=== PATIENT | female | born 1940 | race African-American/Black ===

== ENCOUNTER 2016-05-24 19:35 | Inpatient (IN) | payer MEDICARE ==
[~2016-05-24] VITALS: Ht 157.5 cm; Wt 78.0 kg
[2016-05-24 19:37] VITALS: BP 138/66; PULSE 95; RESP 16; TEMP 98; O2SAT 96
[2016-05-24] MEDS ORDERED: SIMV10TA PO (22:56)
[2016-05-24] MEDS ORDERED: WARF-23 PO (22:56)
[2016-05-24] MEDS ORDERED: SODIUM CHLOR 0.9% 1000 ML INJ 1,000 ML IV SCH (23:18)
--- NOTE | 2016-05-24 23:26 | PD ---
HPI Chief Complaint: Abdominal Pain Time Seen by Provider: 23:13 Travel History International Travel<30 days: No Contact w/Intl Traveler<30days: No Traveled to known affect area: No History of Present Illness HPI Patient is a 75-year-old female who presents to emergency room with complaints of abdominal pain. Patient reports that she began to have lower abdominal pain around 12:30 PM this afternoon. Patient reports that pain felt a cramping sensation to her lower abdomen. Reports that she felt nauseous today and had 2 episodes of vomiting. She does admit to having 3 bowel movements today. Patient denies any recent travels or trips. Denies fevers or chills. Denies dysuria, urinary urgency or frequency. Denies chest pain or shortness of breath. Reports that she has been having continuous lower abdominal pain, patient is here for evaluation as she has never had pain like this in the past. 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) Cerebrovascular Accident: Yes (TIA-2010) Immunizations Current: Yes Tetanus Vaccination: Unknown Influenza Vaccination: Yes ?: Not Family History Family History: Negative Social History Alcohol Use: No Tobacco Use: No Substance Use: No Allergies-Medications (Allergen,Severity, Reaction): Coded Allergies: Aggrenox (Verified Allergy, Intermediate, HEADACHE, 05/24/16) Penicillin (Verified Allergy, Mild, HIVES, 05/24/16) Reported Meds & Prescriptions Reported Meds & Active Scripts Active Macrobid (Nitrofurantoin Monoh/Nitrofur Macro) 100 Mg Cap 100 Mg PO BID 10 Days Reported Simvastatin 10 Mg Tab 10 Mg PO DAILY Warfarin 5 Mg Tab 5 Mg PO DAILY Review of Systems General / Constitutional: No: Fever Eyes: No: Visual changes HENT: No: Headaches Cardiovascular: No: Chest Pain or Discomfort Respiratory: No: Shortness of Breath Gastrointestinal: Positive: Abdominal Pain, No: Nausea, Vomiting, Diarrhea, Constipation Genitourinary: No: Urgency, Frequency, Dysuria Musculoskeletal: No: Pain Skin: No Rash Neurologic: No: Weakness Psychiatric: No: Depression Endocrine: No: Polydipsia Hematologic/Lymphatic: No: Easy Bruising Physical Exam Narrative GENERAL: No acute distress, nontoxic SKIN: Warm and dry. HEAD: Atraumatic. Normocephalic. EYES: Pupils equal and round. No scleral icterus. No injection or drainage. ENT: No nasal bleeding or discharge. Mucous membranes pink and moist. NECK: Trachea midline. No JVD. CARDIOVASCULAR: Regular rate and rhythm. No murmur appreciated. RESPIRATORY: No accessory muscle use. Clear to auscultation. Breath sounds equal bilaterally. GASTROINTESTINAL: Abdomen soft, patient with increased tenderness to the lower abdomen - no rebound or guarding on exam MUSCULOSKELETAL: No obvious deformities. No clubbing. No cyanosis. No edema. NEUROLOGICAL: Awake and alert. No obvious cranial nerve deficits. Motor grossly within normal limits. Normal speech. PSYCHIATRIC: Appropriate mood and affect; insight and judgment normal. Data Data Last Documented VS Vital Signs Date Time Temp Pulse Resp B/P Pulse Ox O2 Delivery O2 Flow Rate FiO2 05/24/16 22:56 16 05/24/16 19:37 98.0 95 138/66 96 Room Air Orders Complete Blood Count With Diff (05/24/16 23:18) Comprehensive Metabolic Panel (05/24/16 23:18) Lipase (05/24/16 23:18) Prothrombin Time / Inr (Pt) (05/24/16 23:18) Act Partial Throm Time (Ptt) (05/24/16 23:18) Urinalysis - C+S If Indicated (05/24/16 23:18) Iv Access Insert/Monitor (05/24/16 23:18) Morphine Inj (Morphine Inj) (05/24/16 23:30) Ondansetron Inj (Zofran Inj) (05/24/16 23:30) Sodium Chlor 0.9% 1000 Ml Inj (Ns 1000 M (05/24/16 23:18) Sodium Chloride 0.9% Flush (Ns Flush) (05/24/16 23:30) Urine Culture (05/24/16 23:35) Ct Abd/Pel W Iv Contrast(Rout) (05/25/16 ) Sodium Chlor 0.9% 1000 Ml Inj (Ns 1000 M (05/25/16 00:30) Nitrofurantoin Monohyd Macrocr (Macrobid (05/25/16 00:30) Iohexol 350 Inj (Omnipaque 350 Inj) (05/25/16 00:53) Admit To Inpatient (05/25/16 ) Vital Signs (Adult) Q4H (05/25/16 01:54) Activity Oob With Assistance (05/25/16 01:54) 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 / 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 .CONTINUOUS (05/25/16 01:54) Diet Npo (05/25/16 Breakfast) Sodium Chlor 0.9% 1000 Ml Inj (Ns 1000 M (05/25/16 01:54) Sodium Chloride 0.9% Flush (Ns Flush) (05/25/16 02:00) Sodium Chloride 0.9% Flush (Ns Flush) (05/25/16 09:00) Ondansetron Inj (Zofran Inj) (05/25/16 02:00) Metoclopramide Inj (Reglan Inj) (05/25/16 02:00) Basic Metabolic Panel (Bmp) (05/26/16 06:00) Complete Blood Count With Diff (05/26/16 06:00) Scd Bilateral/Knee High PHILL.BID (05/25/16 01:54) Naloxone Inj (Narcan Inj) (05/25/16 02:00) Inpatient Certification (05/25/16 ) Labs Laboratory Tests Test 05/24/16 23:35 White Blood Count 11.8 TH/MM3 Red Blood Count 5.03 MIL/MM3 Hemoglobin 15.7 GM/DL Hematocrit 45.1 % Mean Corpuscular Volume 89.6 FL Mean Corpuscular Hemoglobin 31.2 PG Mean Corpuscular Hemoglobin 34.8 % Concent Red Cell Distribution Width 13.7 % Platelet Count 213 TH/MM3 Mean Platelet Volume 8.8 FL Neutrophils (%) (Auto) 84.1 % Lymphocytes (%) (Auto) 12.3 % Monocytes (%) (Auto) 2.9 % Eosinophils (%) (Auto) 0.0 % Basophils (%) (Auto) 0.7 % Neutrophils # (Auto) 9.9 TH/MM3 Lymphocytes # (Auto) 1.4 TH/MM3 Monocytes # (Auto) 0.3 TH/MM3 Eosinophils # (Auto) 0.0 TH/MM3 Basophils # (Auto) 0.1 TH/MM3 CBC Comment DIFF FINAL Differential Comment Prothrombin Time 22.8 SEC Prothromb Time International 2.0 RATIO Ratio Activated Partial 32.1 SEC Thromboplast Time Urine Color YELLOW Urine Turbidity HAZY Urine pH 6.0 Urine Specific [place] 1.023 Urine Protein 30 mg/dL Urine Glucose (UA) NEG mg/dL Urine Ketones TRACE mg/dL Urine Occult Blood TRACE Urine Nitrite POS Urine Bilirubin NEG Urine Urobilinogen LESS THAN 2.0 MG/DL Urine Leukocyte Esterase LARGE Urine RBC 2 /hpf Urine WBC 54 /hpf Urine Squamous Epithelial 4 /hpf Cells Urine Transitional Epithelial 1 /hpf Cells Urine Bacteria MANY /hpf Urine Hyaline Casts 5 /lpf Urine Mucus FEW /lpf Microscopic Urinalysis Comment CULTURE INDICATED Sodium Level 139 MEQ/L Potassium Level 4.2 MEQ/L Chloride Level 101 MEQ/L Carbon Dioxide Level 29.8 MEQ/L Anion Gap 8 MEQ/L Blood Urea Nitrogen 15 MG/DL Creatinine 1.30 MG/DL Estimat Glomerular Filtration 48 ML/MIN Rate Random Glucose 140 MG/DL Calcium Level 9.7 MG/DL Total Bilirubin 0.5 MG/DL Aspartate Amino Transf 34 U/L (AST/SGOT) Alanine Aminotransferase 37 U/L (ALT/SGPT) Alkaline Phosphatase 48 U/L Total Protein 8.8 GM/DL Albumin 4.2 GM/DL Lipase 166 U/L MDM Medical Decision Making Medical Screen Exam Complete: Yes Emergency Medical Condition: Yes Interpretation(s) Vital Signs Date Time Temp Pulse Resp B/P Pulse Ox O2 Delivery O2 Flow Rate FiO2 05/24/16 22:56 16 05/24/16 19:37 98.0 95 16 138/66 96 Room Air CBC & BMP Diagram 05/24/16 23:35 Last Impressions Abdomen/Pelvis CT 05/25/16 0000 Signed Impressions: Service Date/Time: Wednesday, May 25, 2016 00:45 - CONCLUSION: 1. Early and/or mild/partial small bowel obstruction at the level of the mid to distal ileum in the right lower quadrant. Etiology of obstruction uncertain. No mass demonstrated. 2. Mild fatty infiltration of the liver. 3. Small umbilical hernia containing fat only and not acutely contributory. 4. Sigmoid colon diverticulosis without diverticulitis. 5. 18 mm partly calcified uterine fibroid. Nile Burch MD Differential Diagnosis Colitis, UTI, gastroenteritis, SBO Narrative Course Patient is a 75-year-old female who presents to emergency room with complaints of lower abdominal pain since 12:30 PM this afternoon. Patient denies, fever or chills. Reports that she has had 2 episodes of vomiting today and 3 bm's. Patient reports persistent pain to lower abdomen. Vital signs are stable Patient with lower abdominal pain with no rebound or guarding on exam. Will obtain labs and CT of abdomen and pelvis for further evaluation symptoms. Patient reevaluated, reviewed all labs and all studies in detail. Patient with early small bowel obstruction on CAT scan. I reviewed this with patient in detail. Will admit her for early small bowel obstruction. Physician Communication Physician Communication case reviewed with dr caro who accepts pt to service Diagnosis Primary Impression: UTI (urinary tract infection) Qualified Code: N30.01 - Acute cystitis with hematuria Additional Impressions: Renal insufficiency Dehydration Small bowel obstruction Admitting Information Admitting Physician Requests: Admit Patient Instructions: General Instructions Med/Other Pt SpecificInfo: Prescription(s) given Scripts Nitrofurantoin Monohydrate Macrocrystals (Macrobid)100 Mg [id number] Mg PO BID 10 Days Ref 0 Prov:Mary Grace Grace DO 05/25/16 Mary Grace Grace DO May 24, 2016 23:26
[2016-05-24] MEDS ORDERED: ONDANSETRON HCL 4 MG/2 ML VIAL IVP ONE (23:30)
[2016-05-24] MEDS ORDERED: MORPHINE SULFATE 4 MG/ML INJ IV PUSH ONE (23:30)
[2016-05-24] MEDS ORDERED: SODIUM CHLORIDE 0.9% FLUSH 5 ML FLUSH IVF PRN (23:30)
[2016-05-24 23:44] LABS: AUTOMATED NEUTROPHIL # 9.9 TH/MM3 (1.8-7.7); BASOPHIL # 0.1 TH/MM3 (0-0.2); BASOPHIL % 0.7 % (0.0-2.0); HEMATOCRIT 45.1 % (35.0-46.0); HEMO FLAGS DIFF FINAL; LYMPH % 12.3 % (9.0-44.0); LYMPHOCYTE # 1.4 TH/MM3 (1.0-4.8); MEAN CELL VOLUME 89.6 FL (80.0-100.0); MEAN CORPUSCULAR HEMOGLOBIN 31.2 PG (27.0-34.0); MEAN CORPUSCULAR HGB CONC 34.8 % (32.0-36.0); MONO % 2.9 % (0.0-8.0); NEUT % 84.1 % (16.0-70.0); PLATELET COUNT 213 TH/MM3 (150-450); RED BLOOD COUNT 5.03 MIL/MM3 (4.00-5.30); RED CELL DISTRIBUTION WIDTH 13.7 % (11.6-17.2); WHITE BLOOD COUNT 11.8 TH/MM3 (4.0-11.0)
[2016-05-24 23:47] LABS: BACTERIA, URINE MANY /hpf; BLOOD, URINE TRACE (NEG); COMMENT (UR) CULTURE INDICATED; CULTURE IF INDICATED CULTURE INDICATED; GLUCOSE,URINE NEG (NEG); HYALINE CAST, URINE 5 /lpf (RARE); KETONE, URINE TRACE mg/dL (NEG); MUCUS URINE FEW /lpf (OCC); NITRITE,URINE POS (NEG); SQUAMOUS EPITHELIAL CELL URINE 4 /hpf (0-5); TRANSITIONAL EPI CELLS, URINE 1 /hpf; URINE COLOR YELLOW (YELLW/STRAW)
[2016-05-24 23:54] LABS: APTT (PATIENT) 32.1 SEC (24.3-30.1); PROTHROMBIN TIME - PATIENT 22.8 SEC (9.8-11.6)
[2016-05-25] VITALS (7 sets, daily range): BP systolic 116–128; BP diastolic 51–69; PULSE 64–78; RESP 16–20; TEMP 96.4–98.7; O2SAT 93–96
[2016-05-25 00:15] LABS: ANION GAP 8 MEQ/L (5-15); AST (GOT) 34 U/L (15-37); BICARBONATE 29.8 MEQ/L (21.0-32.0); BLOOD UREA NITROGEN 15 MG/DL (7-18); CHLORIDE 101 MEQ/L (98-107); GLOMERULAR FILTRATION RATE 48 ML/MIN (>89); POTASSIUM 4.2 MEQ/L (3.5-5.1); SODIUM (NA) 139 MEQ/L (136-145)
[2016-05-25 00:18] LABS: ALKALINE PHOSPHATASE 48 U/L (45-117); ALT (GPT) 37 U/L (10-53); TOTAL BILIRUBIN ADULT 0.5 MG/DL (0.2-1.0)
[2016-05-25] MEDS ORDERED: MACR100C2 PO (00:20)
[2016-05-25] MEDS ORDERED: SODIUM CHLOR 0.9% 1000 ML INJ 1,000 ML IV ONE (00:30)
[2016-05-25] MEDS ORDERED: NITROFURANTOIN MONOHYD MACROCR 100 MG CAP PO ONE (00:30)
[2016-05-25] MEDS ORDERED: IOHEXOL 350 MG/ML 10 ML VIAL (for RAD DIAG) IV ONE (00:53)
--- NOTE | 2016-05-25 01:18 | RADRPT ---
EXAM DATE/TIME: 05/25/2016 00:45 [facility] COMPARISON: No previous studies available for comparison. INDICATIONS : Abdomen pain with vomiting. IV CONTRAST: 70 cc Omnipaque 350 (iohexol) IV ORAL CONTRAST: No oral contrast ingested. RADIATION DOSE: 8.37 CTDIvol (mGy) MEDICAL HISTORY : Cerebrovascular disease. SURGICAL HISTORY : None. ENCOUNTER: Initial ACUITY: 1 day PAIN SCALE: 8/10 LOCATION: Bilateral abdomen TECHNIQUE: Volumetric scanning of the abdomen and pelvis was performed. Using automated exposure control and ad justment of the mA and/or kV according to patient size, radiation dose was kept as low as reasonably achievable to obtain optimal diagnostic quality images. FINDINGS: LOWER LUNGS: The visualized lower lungs are clear. LIVER: Homogeneous mild fatty density without lesion. There is no dilation of the biliary tree. No calcifi ed gallstones. SPLEEN: Normal size without lesion. PANCREAS: Within normal limits. KIDNEYS: Normal in size and shape. There is no mass, stone or hydronephrosis. ADRENAL GLANDS: Within normal limits. VASCULAR: There is no aortic aneurysm. BOWEL/MESENTERY: Fluid-filled loops of small bowel are seen to the level of the mid ileum, only upper limits of normal caliber but clearly with decompressed distal ileum. The caliber change appears to be in the right lo wer quadrant. I don't see a mass. The appendix is well-visualized, normal. There is diverticulosis of the sigmoid colon without acute inflammatory changes. There is small free fluid in the pelvic cavity . ABDOMINAL WALL: Small fat containing umbilical hernia. RETROPERITONEUM: There is no lymphadenopathy. BLADDER: No wall thickening or mass. REPRODUCTIVE: Partly calcified 18 mm uterine fibroid seen of the left side of the body. INGUINAL: There is no lymphadenopathy or hernia. MUSCULOSKELETAL: Within normal limits for patient age. CONCLUSION: 1. Early and/or mild/partial small bowel obstruction at the level of the mid to distal ileum in the r ight lower quadrant. Etiology of obstruction uncertain. No mass demonstrated. 2. Mild fatty infiltration of the liver. 3. Small umbilical hernia containing fat only and not acutely contributory. 4. Sigmoid colon diverticulosis without diverticulitis. 5. 18 mm partly calcified uterine fibroid. Nile Burch MD on May 25, 2016 at 1:11 Board Certified Radiologist. This report was verified electronically.
[2016-05-25] MEDS ORDERED: METOCLOPRAMIDE HCL 10 MG/2 ML VIAL IV PUSH PRN (02:00)
[2016-05-25] MEDS ORDERED: SODIUM CHLORIDE 0.9% FLUSH 5 ML FLUSH FLUSH PRN (02:00)
[2016-05-25] MEDS ORDERED: NALOXONE HCL 0.4 MG/ML AMP IV PRN (02:00)
[2016-05-25] MEDS ORDERED: ONDANSETRON HCL 4 MG/2 ML VIAL IVP PRN (02:00)
[2016-05-25] MEDS: SODIUM CHLOR 0.9% 1000 ML INJ 1,000 ML IV SCH ×3 (02:13→21:54)
[2016-05-25] MEDS: SODIUM CHLORIDE 0.9% FLUSH 5 ML FLUSH FLUSH SCH ×2 (09:00→20:12)
[2016-05-25] MEDS: CIPROFLOXACIN 400 MG PREMIX 200 ML IV SCH ×2 (11:11→18:03)
[2016-05-25] MEDS ORDERED: NON-FORMULARY DRUG (Simvastatin 10 MG) PO SCH (18:30)
--- NOTE | 2016-05-25 18:42 | HHI.HP ---
HPI Service [facility] Hospitalists Primary Care Physician Non-Staff Admission Diagnosis Small bowel obstruction, uti Diagnoses: Chief Complaint: Abdominal pain Travel History International Travel<30 Days: No Contact w/Intl Traveler <30 Da: No Traveled to Known Affected Are: No History of Present Illness This is a 75-year-old female with past medical history as detailed below who presents to [facility] complaining of abdominal pain. The patient reports that she started having lower abdominal pain around 12:30 PM this afternoon. The pain was crampy and located in her lower abdomen, nonradiating associated with nausea and 2 episodes of vomiting. She states that had 3 episodes of bowel movement on that same day. The patient denies any fevers, chills, urinary frequency or urgency, chest pain or shortness of breath. The patient however reports that she has been having continued lower abdominal pain prior to these episodes. At the moment of this interview the patient's abdominal pain has completely subsided as well as the nausea. Review of Systems Other As per history of present illness, other systems reviewed and negative Past Family Social History Past Medical History 1. TIA. 2. 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 4. Hyperlipidemia 5. Denies hypertension. Past Surgical History 1. History of ectopic was she had a fallopian tube removed. 2. Bilateral cataract surgery. Reported Medications Macrobid (Nitrofurantoin Monoh/Nitrofur Macro) 100 Mg Cap 100 Mg PO BID 10 Days Simvastatin 10 Mg Tab 10 Mg PO DAILY Warfarin 5 Mg Tab 5 Mg PO DAILY Allergies: Coded Allergies: Aggrenox (Verified Allergy, Intermediate, HEADACHE, 05/24/16) Penicillin (Verified Allergy, Mild, HIVES, 05/24/16) Active Ordered Medications Current Medications Medications (Trade) Dose Ordered Sig/Rolando Route Start Time Stop Time Status Last Admin (NS 1000 ml Inj) 1,000 ml @ 100 mls/hr Q10H IV 05/25/16 01:54 05/25/16 12:45 (NS Flush) 2 ml UNSCH PRN FLUSH 05/25/16 02:00 (NS Flush) 2 ml BID FLUSH 05/25/16 09:00 (Zofran Inj) 4 mg Q6H PRN IVP 05/25/16 02:00 (Reglan Inj) 5 mg Q6H PRN IV PUSH 05/25/16 02:00 Naloxone HCl 0.4 mg 0.4 mg UNSCH PRN IV 05/25/16 02:00 (Cipro 400 Mg Premix) 200 ml @ 200 mls/hr Q8H IV 05/25/16 10:15 05/25/16 18:03 Family History Patient maternal grandmother had heart disease. The patient's grandmother at age 42 and her in her 60s. Sister had breast cancer. Father had bladder cancer. Mother had leukemia. Social History Patient is a former smoker but states that she quit approximately 2 years ago. Denies alcohol intake. The patient is and lives with her . Physical Exam Vital Signs Vital Signs Date Time Temp Pulse Resp B/P Pulse Ox O2 Delivery O2 Flow Rate FiO2 05/25/16 16:00 96.4 64 18 121/62 95 05/25/16 15:00 72 05/25/16 12:00 98.1 67 18 128/59 94 05/25/16 08:00 97.1 67 20 121/58 95 05/25/16 06:06 97.6 67 20 116/51 95 05/25/16 00:00 78 16 128/60 96 Room Air 05/24/16 22:56 16 05/24/16 19:37 98.0 95 16 138/66 96 Room Air Physical Exam GENERAL: This is a well-nourished, well-developed patient, in no apparent distress. SKIN: No rashes, ecchymoses or lesions. Cool and dry. HEAD: Atraumatic. Normocephalic. No temporal or scalp tenderness. EYES: Pupils equal round and reactive. Extraocular motions intact. No scleral icterus. No injection or drainage. ENT: Nose without bleeding, purulent drainage or septal hematoma. Throat without erythema, tonsillar hypertrophy or exudate. Uvula midline. Airway patent. NECK: Trachea midline. No JVD or lymphadenopathy. Supple, nontender, no meningeal signs. CARDIOVASCULAR: Regular rate and rhythm without murmurs, gallops, or rubs. RESPIRATORY: Clear to auscultation. Breath sounds equal bilaterally. No wheezes , rales, or rhonchi. GASTROINTESTINAL: Abdomen soft, non-tender, nondistended. No hepato-splenomegaly , or palpable masses. No guarding. MUSCULOSKELETAL: Extremities without clubbing, cyanosis, or edema. No joint tenderness, effusion, or edema noted. No calf tenderness. Negative Homans sign bilaterally. NEUROLOGICAL: Awake and alert. Cranial nerves II through XII intact. Motor and sensory grossly within normal limits. Five out of 5 muscle strength in all muscle groups. Normal speech. Laboratory Laboratory Tests Test 05/24/16 05/25/16 23:35 09:30 White Blood Count 11.8 Red Blood Count 5.03 Hemoglobin 15.7 Hematocrit 45.1 Mean Corpuscular Volume 89.6 Mean Corpuscular Hemoglobin 31.2 Mean Corpuscular Hemoglobin 34.8 Concent Red Cell Distribution Width 13.7 Platelet Count 213 Mean Platelet Volume 8.8 Neutrophils (%) (Auto) 84.1 Lymphocytes (%) (Auto) 12.3 Monocytes (%) (Auto) 2.9 Eosinophils (%) (Auto) 0.0 Basophils (%) (Auto) 0.7 Neutrophils # (Auto) 9.9 Lymphocytes # (Auto) 1.4 Monocytes # (Auto) 0.3 Eosinophils # (Auto) 0.0 Basophils # (Auto) 0.1 CBC Comment DIFF FINAL Differential Comment Prothrombin Time 22.8 Prothromb Time International 2.0 Ratio Activated Partial 32.1 Thromboplast Time Urine Color YELLOW Urine Turbidity HAZY Urine pH 6.0 Urine Specific [place] 1.023 Urine Protein 30 Urine Glucose (UA) NEG Urine Ketones TRACE Urine Occult Blood TRACE Urine Nitrite POS Urine Bilirubin NEG Urine Urobilinogen LESS THAN 2.0 Urine Leukocyte Esterase LARGE Urine RBC 2 Urine WBC 54 Urine Squamous Epithelial 4 Cells Urine Transitional Epithelial 1 Cells Urine Bacteria MANY Urine Hyaline Casts 5 Urine Mucus FEW Microscopic Urinalysis Comment CULTURE INDICATED Sodium Level 139 Potassium Level 4.2 Chloride Level 101 Carbon Dioxide Level 29.8 Anion Gap 8 Blood Urea Nitrogen 15 Creatinine 1.30 Estimat Glomerular Filtration 48 Rate Random Glucose 140 Calcium Level 9.7 Total Bilirubin 0.5 Aspartate Amino Transf 34 (AST/SGOT) Alanine Aminotransferase 37 (ALT/SGPT) Alkaline Phosphatase 48 Total Protein 8.8 Albumin 4.2 Lipase 166 Nasal Screen MRSA (PCR) NEGATIVE Date/Time Procedure Status Source Growth 05/24/16 23:35 Urine Culture - Preliminary Resulted Urine Clean Catch IMMATURE GROWTH - REINCUBATE Result Diagram: 05/24/16 2335 05/24/16 2335 Imaging Last Impressions Abdomen/Pelvis CT 05/25/16 0000 Signed Impressions: Service Date/Time: Wednesday, May 25, 2016 00:45 - CONCLUSION: 1. Early and/or mild/partial small bowel obstruction at the level of the mid to distal ileum in the right lower quadrant. Etiology of obstruction uncertain. No mass demonstrated. 2. Mild fatty infiltration of the liver. 3. Small umbilical hernia containing fat only and not acutely contributory. 4. Sigmoid colon diverticulosis without diverticulitis. 5. 18 mm partly calcified uterine fibroid. Nile Burch MD Reviewed by me Assessment and Plan Problem List: (1) Small bowel obstruction ICD Code: K56.69 Status: Acute Plan: 75-year-old female who presented to [facility] complaining of abdominal pain, nausea and vomiting. Found to have an early small bowel obstruction on CT scan. Patient initially was admitted to the medical floor. Place nothing by mouth. Symptoms much improved today. I will set the patient after liquid diet. Obtain a KUB Continue fluids and hydration. (2) UTI (urinary tract infection) ICD Code: N39.0 Status: Acute Plan: Patient was on Macrobid at home. UA is positive here. Patient denies fevers or chills. I will start the patient had a ciprofloxacin and follow urine cultures (3) DEBORAH (acute kidney injury) ICD Code: N17.9 Status: Acute Plan: Creatinine elevated to 1.30. Unfortunately we don't have any other previous creatinines to compare with. Likely prerenal azotemia due to dehydration. CT abdomen rule out hydronephrosis. (4) Dehydration ICD Code: E86.0 Status: Acute Plan: Likely due to decreased oral intake, although patient's states that she has been hydrating herself. Continue IV fluids. (5) History of TIAs ICD Code: Z86.73 Status: Chronic Plan: Patient currently on chronic anticoagulation with Coumadin. INR is 2.0. Continue warfarin with a goal INR of 2-3. (6) Hyperlipidemia ICD Code: E78.5 Status: Acute Plan: Continue statin. Assessment and Plan GI prophylaxis: PPI. Activity prophylaxis: On chronic anticoagulation with Coumadin. Physician Certification 2 Midnight Certification Type: Admission for Inpatient Services Order for Inpatient Services The services are ordered in accordance with Medicare regulations or non- Medicare payer requirements, as applicable. In the case of services not specified as inpatient-only, they are appropriately provided as inpatient services in accordance with the 2-midnight benchmark. Estimated LOS (days): 2 days is the estimated time the patient will need to remain in the hospital, assuming treatment plan goals are met and no additional complications. Post-Hospital Plan: Home Problem Qualifiers (1) UTI (urinary tract infection): Qualified Code: N30.01 - Acute cystitis with hematuria Rayshawn Baez MD May 25, 2016 18:42
--- NOTE | 2016-05-25 19:04 | RADRPT ---
EXAM DATE/TIME: 05/25/2016 18:38 [facility] COMPARISON: No previous studies available for comparison. INDICATIONS : Abdominal distention. MEDICAL HISTORY : Cerebrovascular disease. SURGICAL HISTORY : None. ENCOUNTER: Initial ACUITY: 2 days PAIN SCORE: 0/10 LOCATION: Bilateral abdomen FINDINGS: Supine view of the abdomen was performed. The abdominal bowel gas pattern is normal. No abnormal ma sses, calcifications, or organomegaly is seen. The osseous structures are unremarkable. CONCLUSION: No acute disease. Nile Locke MD on May 25, 2016 at 19:02 Board Certified Radiologist. This report was verified electronically.
[2016-05-25] MEDS: PRAVASTATIN SOD 20 MG TAB PO SCH (20:11)
[2016-05-25] MEDS: WARFARIN SOD 5 MG TAB PO SCH (20:11)
[2016-05-26] VITALS (7 sets, daily range): BP systolic 110–149; BP diastolic 50–77; PULSE 63–78; RESP 17–18; TEMP 97–99.4; O2SAT 93–98
[2016-05-26] MEDS: CIPROFLOXACIN 400 MG PREMIX 200 ML IV SCH ×3 (02:51→16:32)
[2016-05-26] MEDS ORDERED: ACETAMINOPHEN 325 MG TAB PO PRN (03:30)
[2016-05-26] MEDS: SODIUM CHLOR 0.9% 1000 ML INJ 1,000 ML IV SCH ×2 (07:54→16:27)
[2016-05-26] MEDS: PRAVASTATIN SOD 20 MG TAB PO SCH (08:30)
[2016-05-26] MEDS: SODIUM CHLORIDE 0.9% FLUSH 5 ML FLUSH FLUSH SCH ×2 (08:30→21:00)
--- NOTE | 2016-05-26 12:47 | HHI.PR ---
Subjective Remarks Patient stated she is passing gas but no bowel movement, no nausea or vomiting No abdominal pain or fever or chills Objective Vitals Vital Signs Date Time Temp Pulse Resp B/P Pulse Ox O2 Delivery O2 Flow Rate FiO2 05/26/16 08:45 97.8 72 18 115/56 93 05/26/16 04:44 98.7 70 17 122/61 93 05/26/16 00:08 97.0 76 17 110/50 93 05/25/16 20:07 98.7 73 17 128/69 93 05/25/16 16:00 96.4 64 18 121/62 95 05/25/16 15:00 72 I/O 05/25/16 05/25/16 05/25/16 05/26/16 05/26/16 05/26/16 07:00 15:00 23:00 07:00 15:00 23:00 Intake Total 830 ml 942 ml Balance 830 ml 942 ml Intake Oral 120 ml 120 ml IV Total 710 ml 822 ml # Voids 2 2 3 2 Result Diagram: 05/24/16233405/24/165 Objective Remarks - GENERAL: This is a well-nourished, well-developed patient, in no apparent distress. SKIN: No rashes, warm and dry HEAD: Atraumatic. Normocephalic. EYES: Pupils equal round and reactive. Extraocular motions intact. No scleral icterus. ENT: Nose without bleeding, or drainage, Airway patent. NECK: Trachea midline. Supple CARDIOVASCULAR: Regular rate and rhythm without murmurs, gallops, or rubs. RESPIRATORY: Fair air entry bilaterally. No wheezes, rales, or rhonchi. GASTROINTESTINAL: Abdomen soft, non-tender, nondistended. Diminished bowel sounds MUSCULOSKELETAL: Extremities without clubbing, cyanosis, or edema. Pedal pulses appreciated NEUROLOGICAL: Awake and alert. Moves all extremity. Normal speech.no focal neurological deficit A/P Problem List: (1) Small bowel obstruction ICD Code: K56.69 Status: Acute (2) UTI (urinary tract infection) ICD Code: N39.0 Status: Acute (3) DEBORAH (acute kidney injury) ICD Code: N17.9 Status: Acute (4) Dehydration ICD Code: E86.0 Status: Acute (5) History of TIAs ICD Code: Z86.73 Status: Chronic (6) Hyperlipidemia ICD Code: E78.5 Status: Acute Assessment and Plan 75-year-old female who presented to [facility] complaining of abdominal pain, nausea and vomiting. Found to have an early small bowel obstruction on CT scan. Early Small bowel obstruction shown on CT abdomen Diverticulosis without diverticulitis UTI DEBORAH versus CKD, baseline creatinine not known Dehydration H/O TIA H/O hyperlipidemia VT prophylaxis Plan: Nothing by mouth, advance diet as tolerated KUB and CT abdomen reviewed, partial small bowel obstruction and diverticulosis Started ciprofloxacin for UTI, monitor urine culture Monitor BMP, on iv hydration, BUN over creatinine Patient on Coumadin for TIA, continue monitoring INR Continue statin for hyperlipidemia On Coumadin for DVT prophylaxis Problem Qualifiers (1) UTI (urinary tract infection): Qualified Code: N30.01 - Acute cystitis with hematuria Verna Willson MD May 26, 2016 12:47
[2016-05-26 14:28] LABS: BICARBONATE 25.2 MEQ/L (21.0-32.0); POTASSIUM 3.9 MEQ/L (3.5-5.1)
[2016-05-26] MEDS: WARFARIN SOD 5 MG TAB PO SCH (16:27)
[2016-05-27] VITALS (8 sets, daily range): BP systolic 110–150; BP diastolic 48–70; PULSE 63–86; RESP 18; TEMP 96.6–98.6; O2SAT 93–98
[2016-05-27] MEDS: CIPROFLOXACIN 400 MG PREMIX 200 ML IV SCH ×3 (02:15→17:55)
[2016-05-27] MEDS: SODIUM CHLOR 0.9% 1000 ML INJ 1,000 ML IV SCH ×3 (03:54→23:54)
[2016-05-27 07:33] LABS: INTERNATIONAL NORMALIZED RATIO 2.6 RATIO; PROTHROMBIN TIME - PATIENT 30.2 SEC (9.8-11.6)
[2016-05-27 07:48] LABS: BICARBONATE 27.1 MEQ/L (21.0-32.0); POTASSIUM 3.8 MEQ/L (3.5-5.1)
[2016-05-27] MEDS: SODIUM CHLORIDE 0.9% FLUSH 5 ML FLUSH FLUSH SCH ×2 (09:00→21:00)
[2016-05-27] MEDS ORDERED: RESP: ALBUTEROL 2.5 MG/IPRATROPIUM 0.5 MG NEB (SCH) ONE (10:59)
--- NOTE | 2016-05-27 11:38 | HHI.PR ---
Subjective Remarks Patient still did not have a bowel movement, she stated she is passing gas no fever or chills no abdominal pain she is on full liquid diet we will advance her diet and monitor for a bowel movement Objective Vitals Vital Signs Date Time Temp Pulse Resp B/P Pulse Ox O2 Delivery O2 Flow Rate FiO2 05/27/16 08:07 97.2 68 18 134/61 93 05/27/16 08:00 63 05/27/16 04:00 96.6 63 18 110/48 95 05/27/16 00:00 98.4 86 18 120/70 96 05/26/16 20:00 98.2 70 18 141/60 98 05/26/16 18:00 63 05/26/16 17:01 99.4 78 18 149/77 98 05/26/16 13:03 99.2 70 18 132/66 96 I/O 05/26/16 05/26/16 05/26/16 05/27/16 05/27/16 05/27/16 07:00 15:00 23:00 07:00 15:00 23:00 Intake Total 942 ml 720 ml 360 ml Balance 942 ml 720 ml 360 ml Intake Oral 120 ml 720 ml 360 ml IV Total 822 ml # Voids 2 4 Result Diagram: 05/24/16 2335 05/27/16 0700 Objective Remarks - GENERAL: This is a well-nourished, well-developed patient, in no apparent distress. SKIN: No rashes, warm and dry HEAD: Atraumatic. Normocephalic. EYES: Pupils equal round and reactive. Extraocular motions intact. No scleral icterus. ENT: Nose without bleeding, or drainage, Airway patent. NECK: Trachea midline. Supple CARDIOVASCULAR: Regular rate and rhythm without murmurs, gallops, or rubs. RESPIRATORY: Fair air entry bilaterally. No wheezes, rales, or rhonchi. GASTROINTESTINAL: Abdomen soft, non-tender, nondistended. Still Diminished b owel sounds MUSCULOSKELETAL: Extremities without clubbing, cyanosis, or edema. Pedal pulses appreciated NEUROLOGICAL: Awake and alert. Moves all extremity. Normal speech.no focal neurological deficit A/P Problem List: (1) Small bowel obstruction ICD Code: K56.69 Status: Acute (2) UTI (urinary tract infection) ICD Code: N39.0 Status: Acute (3) DEBORAH (acute kidney injury) ICD Code: N17.9 Status: Acute (4) Dehydration ICD Code: E86.0 Status: Acute (5) History of TIAs ICD Code: Z86.73 Status: Chronic (6) Hyperlipidemia ICD Code: E78.5 Status: Acute Assessment and Plan 75-year-old female who presented to [facility] complaining of abdominal pain, nausea and vomiting. Found to have an early small bowel obstruction on CT scan. Early Small bowel obstruction shown on CT abdomen Diverticulosis without diverticulitis UTI DEBORAH versus CKD, baseline creatinine not known Dehydration H/O TIA H/O hyperlipidemia VT prophylaxis Plan: Patient on full liquid diet, advance diet as tolerated, monitor for bowel movement KUB and CT abdomen reviewed, partial small bowel obstruction and diverticulosis Started ciprofloxacin for UTI, monitor urine culture Monitor BMP, on iv hydration, BUN over creatinine Patient on Coumadin for TIA, continue monitoring INR Continue statin for hyperlipidemia On Coumadin for DVT prophylaxis Discharge Planning DC once having a bowel movement Problem Qualifiers (1) UTI (urinary tract infection): Qualified Code: N30.01 - Acute cystitis with hematuria Verna Willson MD May 27, 2016 11:38
[2016-05-27] MEDS: WARFARIN SOD 5 MG TAB PO SCH (16:09)
[2016-05-27] MEDS ORDERED: PRAVASTATIN SOD 20 MG TAB PO SCH (21:00)
[2016-05-28 00:30] VITALS: BP 145/60; PULSE 68; RESP 19; TEMP 97.7; O2SAT 97
[2016-05-28] MEDS: CIPROFLOXACIN 400 MG PREMIX 200 ML IV SCH (02:15)
[2016-05-28 05:45] VITALS: BP 139/65; PULSE 64; RESP 18; TEMP 97.5; O2SAT 96
[2016-05-28 08:00] VITALS: BP 143/66; PULSE 66; RESP 20; TEMP 97.9; O2SAT 98
[2016-05-28] MEDS: SODIUM CHLORIDE 0.9% FLUSH 5 ML FLUSH FLUSH SCH (09:00)
[2016-05-28] MEDS: SODIUM CHLOR 0.9% 1000 ML INJ 1,000 ML IV SCH (09:54)
--- NOTE | 2016-05-28 10:35 | HHI.DS ---
Discharge Summary Admission Date May 25, 2016 at 01:58 Discharge Date: May 28, 2016 Admitting Diagnosis Small bowel obstruction, uti (1) Small bowel obstruction ICD Code: K56.69 (2) UTI (urinary tract infection) ICD Code: N39.0 (3) DEBORAH (acute kidney injury) ICD Code: N17.9 (4) Dehydration ICD Code: E86.0 (5) History of TIAs ICD Code: Z86.73 (6) Hyperlipidemia ICD Code: E78.5 Procedures None Brief History - From Admission This is a 75-year-old female with past medical history as detailed below who presents to [facility] complaining of abdominal pain. The patient reports that she started having lower abdominal pain around 12:30 PM this afternoon. The pain was crampy and located in her lower abdomen, nonradiating associated with nausea and 2 episodes of vomiting. She states that had 3 episodes of bowel movement on that same day. The patient denies any fevers, chills, urinary frequency or urgency, chest pain or shortness of breath. The patient however reports that she has been having continued lower abdominal pain prior to these episodes. At the moment of this interview the patient's abdominal pain has completely subsided as well as the nausea. CBC/BMP: 05/24/16 2335 05/27/16 0700 Significant Findings Laboratory Tests Test 05/26/16 05/27/16 13:21 07:00 Chloride Level 108 MEQ/L 112 MEQ/L (98-107) (98-107) Creatinine 1.03 MG/DL (0.50-1.00) Estimat Glomerular Filtration 63 ML/MIN (>89) 69 ML/MIN (>89) Rate Calcium Level 8.1 MG/DL 8.0 MG/DL (8.5-10.1) (8.5-10.1) Prothrombin Time 30.2 SEC (9.8-11.6) Anion Gap 4 MEQ/L (5-15) PE at Discharge - GENERAL: This is a well-nourished, well-developed patient, in no apparent distress. SKIN: No rashes, warm and dry HEAD: Atraumatic. Normocephalic. EYES: Pupils equal round and reactive. Extraocular motions intact. No scleral icterus. ENT: Nose without bleeding, or drainage, Airway patent. NECK: Trachea midline. Supple CARDIOVASCULAR: Regular rate and rhythm without murmurs, gallops, or rubs. RESPIRATORY: Fair air entry bilaterally. No wheezes, rales, or rhonchi. GASTROINTESTINAL: Abdomen soft, non-tender, nondistended. Still Diminished b owel sounds MUSCULOSKELETAL: Extremities without clubbing, cyanosis, or edema. Pedal pulses appreciated NEUROLOGICAL: Awake and alert. Moves all extremity. Normal speech.no focal neurological deficit Hospital Course 75-year-old female who presented to [facility] complaining of abdominal pain, nausea and vomiting. Found to have an early small bowel obstruction on CT scan.Early Small bowel obstruction shown on CT abdomen Diverticulosis without diverticulitis UTI with Klebsiella DEBORAH versus CKD, baseline creatinine not known Dehydration H/O TIA H/O hyperlipidemia VT prophylaxis Course of treatment was as follows Patient initially placed on nothing by mouth, metoclopramide, KUB of the abdomen no pain as above Patient on full liquid diet, advance diet as tolerated, monitor for bowel movement KUB and CT abdomen reviewed, partial small bowel obstruction and diverticulosis Started ciprofloxacin for UTI, monitor urine culture, patient finished 3 days Monitor BMP, on iv hydration, BUN over creatinine Patient on Coumadin for TIA, continue monitoring INR Continue statin for hyperlipidemia On Coumadin for DVT prophylaxis Pt Condition on Discharge: Good Discharge Disposition: Discharge Home Discharge Time: <= 30 minutes Discharge Instructions DIET: Follow Instructions for: Heart Healthy Diet Activities you can perform: Weight Bearing as Shahriar Continued Medications: Simvastatin (Simvastatin) 10 Mg Tab 10 MG PO DAILY Cholesterol Management #30 Ref 0 TAB Warfarin (Warfarin) 5 Mg Tab 5 MG PO DAILY Blood Clot Prevention #30 Ref 0 TAB Verna Willson MD May 28, 2016 10:35
== END 2016-05-28 10:54 | disposition home or self-care (01) | DRG 389 ==
LOC: NEPA 19:35 → NEDA 05-25 01:58 → N05A 05-25 04:18
PROVIDERS: ADMIT Hospitalist; ATTEND Hospitalist
DX: K56.60 Unspecified intestinal obstruction (principal); N17.9 Acute kidney failure, unspecified; N39.0 Urinary tract infection, site not specified; K57.90 Diverticulosis of intestine, part unspecified, without perforation or abscess without bleeding; E86.0 Dehydration; B96.1 Klebsiella pneumoniae [K. pneumoniae] as the cause of diseases classified elsewhere; Z86.73 Personal history of transient ischemic attack (TIA), and cerebral infarction without residual deficits; Z79.01 Long term (current) use of anticoagulants; E78.5 Hyperlipidemia, unspecified; Z88.0 Allergy status to penicillin; Z88.8 Allergy status to other drugs, medicaments and biological substances; Z87.891 Personal history of nicotine dependence
CPT/HCPCS: 74000; 74177; 80048; 80053; 81001; 83690; 85025; 85610; 85730; 87077; 87086; 87186; 87641; 96361; 96374; J0744; J2405; J7030; Q9967